=== PATIENT | male | born 2000 | race African-American/Black ===

== ENCOUNTER 2019-10-28 07:48 | Emergency (ER) | payer OTHER ==
[~2019-10-28] VITALS: Ht 182.9 cm; Wt 97.5 kg
[2019-10-28] MEDS ORDERED: ZITHROMAX500 MG PO (10:51)
[2019-10-28] MEDS ORDERED: DOLOGEN CAPLET1 EACH PO (10:51)
== END 2019-10-28 11:49 | disposition home or self-care (01) ==
LOC: ER 07:48
DX: B34.9 Viral infection, unspecified (principal); Z03.818 Encounter for observation for suspected exposure to other biological agents ruled out; R51 Headache; R05 Cough; R19.7 Diarrhea, unspecified